=== PATIENT | male | born 1950 | race Caucasian/White ===

== ENCOUNTER 2017-06-11 21:09 | Emergency (ER) | payer BC ==
[~2017-06-11] VITALS: Ht 170.2 cm; Wt 88.5 kg
[2017-06-11 21:11] VITALS: BP 147/75
--- NOTE | 2017-06-11 21:20 | NUR ---
TO LOBBY, A/W JUAN CAI NOTED
--- NOTE | 2017-06-11 22:07 | NUR ---
To bed 1.
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
--- NOTE | 2017-06-11 22:36 | NUR ---
DR. DOUGLAS EVALUATING PT AT BED SIDE AT THIS TIME.
[2017-06-11] MEDS ORDERED: IBUPROFEN 800 MG TAB PO ONE (22:45)
--- NOTE | 2017-06-11 22:53 | NUR ---
PT TAKEN TO XRAY VIA WC WITH [employer].
--- NOTE | 2017-06-11 23:16 | NUR ---
PT CAME BACK FROM XRAY.
--- NOTE | 2017-06-12 00:17 | NUR ---
Patient discharged with v/s stable. Written and verbal after care instructions given and explained. Patient alert, oriented and verbalized understanding of instructions. Ambulatory with steady gait. All questions addressed prior to discharge. ID band removed. Patient advised to follow up with PMD. Rx of FLEXERIL AND IBUPROFEN given. Patient educated on indication of medication including possible reaction and side effects. Opportunity to ask questions provided and answered.
[2017-06-12 00:27] VITALS: BP 138/80
== END 2017-06-12 00:17 | disposition home or self-care (01) ==
LOC: MED 21:09
DX: S13.4XXA Sprain of ligaments of cervical spine, initial encounter (principal); V49.40XA Driver injured in collision with unspecified motor vehicles in traffic accident, initial encounter; Y93.89 Activity, other specified; Y92.488 Other paved roadways as the place of occurrence of the external cause; Y99.8 Other external cause status
CPT/HCPCS: 72050; 73030; 73130; 99284